=== PATIENT | male | born 1970 | race Hispanic/Latino ===

== ENCOUNTER 2022-03-12 13:48 | Emergency (ER) | payer MEDICARE, MEDICAID ==
[2022-03-12] MEDS ORDERED: ACETAMINOPHEN 325 MG TAB PO ONE (14:14)
[2022-03-12] MEDS ORDERED: FAMOTIDINE 20 MG TAB PO ONE (14:14)
[2022-03-12] MEDS ORDERED: ONDANSETRON 4 MG ODT TAB PO ONE (14:14)
[2022-03-12 15:12] LABS: Alanine Aminotransferase 17 units/L (7-56); Albumin 4.9 g/dL (3.9-5); BUN/Creatinine Ratio 23; Blood Urea Nitrogen 21 mg/dL (9-20); Calcium 9.9 mg/dL (8.4-10.2); Hemolysis Index 8
[2022-03-12 15:14] LABS: Basophils % (Auto) 0.4 % (0.0-1.8); Eosinophils % (Auto) 0.4 % (0.0-4.3); Hematocrit 51.3 % (35.5-45.6); Lymphocytes # (Auto) 1.2 K/mm3 (1.2-5.4); Mean Corpuscular HGB Conc 33 % (32-34); Mean Corpuscular Volume 94 fl (84-94); Monocytes # (Auto) 0.5 K/mm3 (0.0-0.8); Monocytes % (Auto) 7.7 % (0.0-7.3); Platelet Count 196 K/mm3 (140-440); Red Blood Count 5.44 M/mm3 (3.65-5.03); Red Cell Distribution Width 14.3 % (13.2-15.2)
--- NOTE | 2022-03-12 16:04 | Emergency Department Report ---
ED Psych HPI - General Chief Complaint: Psych Stated Complaint: SI/ABD PAIN Time Seen by Provider: 03/12/22 14:13 Source: EMS Mode of arrival: Ambulatory Limitations: No Limitations - History of Present Illness Initial Comments: 51-year-old male with a past medical history of schizophrenia and hypertension presents to the hospital complaining of suicidal ideation x1 day. 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 intake today. Patient denies any inciting factor. His plan is to overdose on pills. He complains of chronic ongoing abdominal pain with decreased appetite and bilateral knee pain. He states he has a "weak stomach" and he has been having these issues for years. He denies nausea, vomiting, fever, dysuria, or diarrhea. He denies history of abdominal surgeries - Related Data Allergies Allergy/AdvReac Type Severity Reaction Status Date / Time No Known Allergies Allergy Unverified 03/12/22 13:59 ED Review of Systems ROS: Stated complaint: SI/ABD PAIN Other details as noted in HPI Comment: All other systems reviewed and negative ED Past Medical Hx - Past Medical History Previous Medical History?: Yes Hx Hypertension: Yes Hx Psychiatric Treatment: Yes ED Physical Exam - General Limitations: No Limitations - Other Other exam information: General: No acute distress Head: Atraumatic Eyes: normal appearance ENT: Moist mucous membranes Neck: Normal appearance, no midline tenderness Chest: Clear to auscultation bilaterally CV: Regular rate and rhythm Abdomen: Soft, normal bowel sounds, mild generalized abdominal tenderness, nondistended, no rebound or guarding Back: Normal inspection Extremity: Normal inspection, full range of motion Neuro: Alert O x 3, no facial asymmetry, speech clear, no gross motor sensory deficit Psych: poor eye contact Skin: No rash ED Course Vital Signs 03/12/22 03/12/22 13:59 20:29 Temperature 97.4 F L Pulse Rate 80 87 Respiratory 18 18 Rate Blood Pressure 120/90 143/104 [Left] O2 Sat by Pulse 100 98 Oximetry ED Medical Decision Making - Lab Data Result diagrams: 03/12/22 14:31 03/12/22 14:31 Lab Results 03/12/22 03/12/22 03/12/22 Range/Units 14:31 14:31 14:31 WBC 6.7 (4.5-11.0) K/mm3 RBC 5.44 H (3.65-5.03) M/mm3 Hgb 17.0 H (11.8-15.2) gm/dl Hct 51.3 H (35.5-45.6) % MCV 94 (84-94) fl MCH 31 (28-32) pg MCHC 33 (32-34) % RDW 14.3 (13.2-15.2) % Plt Count 196 (140-440) K/mm3 Lymph % (Auto) 18.0 (13.4-35.0) % [place] % (Auto) 7.7 H (0.0-7.3) % Eos % (Auto) 0.4 (0.0-4.3) % Baso % (Auto) 0.4 (0.0-1.8) % Lymph # (Auto) 1.2 (1.2-5.4) K/mm3 [place] # (Auto) 0.5 (0.0-0.8) K/mm3 Eos # (Auto) 0.0 (0.0-0.4) K/mm3 Baso # (Auto) 0.0 (0.0-0.1) K/mm3 Seg Neutrophils % 73.5 H (40.0-70.0) % Seg Neutrophils # 4.9 (1.8-7.7) K/mm3 Sodium 137 (137-145) mmol/L Potassium 4.0 (3.6-5.0) mmol/L Chloride 99.4 (98-107) mmol/L Carbon Dioxide 25 (22-30) mmol/L Anion Gap 17 mmol/L BUN 21 H (9-20) mg/dL Creatinine 0.9 (0.8-1.3) mg/dL Estimated GFR > 60 ml/min BUN/Creatinine Ratio 23 % Glucose 84 (75-100) mg/dL Calcium 9.9 (8.4-10.2) mg/dL Total Bilirubin 0.70 (0.1-1.2) mg/dL AST 19 (5-40) units/L ALT 17 (7-56) units/L Alkaline Phosphatase 126 (35-129) units/L Total Protein 8.0 (6.3-8.2) g/dL Albumin 4.9 (3.9-5) g/dL Albumin/Globulin Ratio 1.6 % Lipase (13-60) units/L Salicylates < 0.3 L (2.8-20.0) mg/dL Acetaminophen (10.0-30.0) ug/mL Plasma/Serum Alcohol (0-0.07) % 03/12/22 03/12/22 03/12/22 Range/Units 14:31 14:31 14:31 WBC (4.5-11.0) K/mm3 RBC (3.65-5.03) M/mm3 Hgb (11.8-15.2) gm/dl Hct (35.5-45.6) % MCV (84-94) fl MCH (28-32) pg MCHC (32-34) % RDW (13.2-15.2) % Plt Count (140-440) K/mm3 Lymph % (Auto) (13.4-35.0) % [place] % (Auto) (0.0-7.3) % Eos % (Auto) (0.0-4.3) % Baso % (Auto) (0.0-1.8) % Lymph # (Auto) (1.2-5.4) K/mm3 [place] # (Auto) (0.0-0.8) K/mm3 Eos # (Auto) (0.0-0.4) K/mm3 Baso # (Auto) (0.0-0.1) K/mm3 Seg Neutrophils % (40.0-70.0) % Seg Neutrophils # (1.8-7.7) K/mm3 Sodium (137-145) mmol/L Potassium (3.6-5.0) mmol/L Chloride (98-107) mmol/L Carbon Dioxide (22-30) mmol/L Anion Gap mmol/L BUN (9-20) mg/dL Creatinine (0.8-1.3) mg/dL Estimated GFR ml/min BUN/Creatinine Ratio % Glucose (75-100) mg/dL Calcium (8.4-10.2) mg/dL Total Bilirubin (0.1-1.2) mg/dL AST (5-40) units/L ALT (7-56) units/L Alkaline Phosphatase (35-129) units/L Total Protein (6.3-8.2) g/dL Albumin (3.9-5) g/dL Albumin/Globulin Ratio % Lipase 28 (13-60) units/L Salicylates (2.8-20.0) mg/dL Acetaminophen 5.0 L (10.0-30.0) ug/mL Plasma/Serum Alcohol < 0.01 (0-0.07) % - Medical Decision Making 51-year-old male with suicidal ideation and chronic abdominal pain. Patient is a 1013 for SI with plan. Labs unremarkable. UA pending collection. Patient is otherwise medically cleared for inpatient psychiatric admission gi meds ordered Critical Care Time: No Critical care attestation.: If time is entered above; I have spent that time in minutes in the direct care of this critically ill patient, excluding procedure time. ED Disposition Clinical Impression: Suicidal ideation, Schizophrenia, Medical clearance for psychiatric admission, Chronic abdominal pain Disposition: [address] [place] [address] Is pt being admited?: No Does the pt Need Aspirin: No Condition: Stable Time of Disposition: 21:05
[2022-03-12] MEDS ORDERED: ACETAMINOPHEN 500 MG TAB PO PRN (21:02)
[2022-03-12] MEDS ORDERED: ONDANSETRON 4 MG ODT TAB PO PRN (21:04)
[2022-03-12] MEDS ORDERED: FAMOTIDINE 20 MG TAB PO SCH (22:00)
[2022-03-13 00:48] LABS: Bacteria,Urine 1+ /HPF (Negative); Bilirubin,Urine NEG (Negative); Blood,Urine SM (Negative); Color,Urine Yellow (Yellow); Mucus,Urine FEW /HPF
[2022-03-13 00:49] LABS: WBC,Urine > 182.0 /HPF (0.0-6.0)
[2022-03-13 00:55] LABS: Amphetamine Screen,Urine PRESUMPTIVE NEGATIVE; Benzodiazepines Screen,Urine PRESUMPTIVE NEGATIVE; Cannabinoid Screen,Urine PRESUMPTIVE NEGATIVE; Cocaine Screen,Urine PRESUMPTIVE NEGATIVE; Methadone Screen,Urine PRESUMPTIVE NEGATIVE; Opiate Screen,Urine PRESUMPTIVE NEGATIVE
[2022-03-13 07:16] VITALS: BP 124/79
--- NOTE | 2022-03-13 10:17 | Consultation ---
History of Present Illness - Reason for Consult Consult date: 03/13/22 Reason for consult: SI, depression - History of Present Psychiatric Illness HPI: 51-year-old male with a past medical history of schizophrenia and hypertension presents to the hospital complaining of suicidal ideation x1 day. 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 intake today. Patient denies any inciting factor. His plan is to overdose on p ills. He complains of chronic ongoing abdominal pain with decreased appetite and bilateral knee pain. He states he has a "weak stomach" and he has been having these issues for years. He denies nausea, vomiting, fever, dysuria, or diarrhea. He denies history of abdominal surgeries. The patient was seen today. He looks depressed. His affect is flat. The patient says he came in for feeling weak and stomach ache. He verbalizes feeling very depressed. The patient endorses SI with a plan to OD. He says he has a history of schizophrenia. The patient says he's been taking his medications. He could not recall the medications he's on. PAST PSYCHIATRIC HISTORY Diagnoses: Schizophrenia Suicide attempts or Self-harm behavior: Yes Prior psychiatric hospitalizations: Yes Substance Abuse history: Denies Previous psychiatric medications tried: could not recall Outpatient treatment: yes PAST MEDICAL HISTORY: None reported Family Psychiatric History: None reported or documented SOCIAL HISTORY Marital Status: Single Living Arrangements: disabled Employment Status: Disabled Access to guns/weapons: Denies Education: History of Abuse: Denies Legal History: Denies REVIEW OF SYSTEMS Constitutional: Negative for weight loss ENT: Negative for stridor Respiratory: Negative for cough or hemoptysis All other systems reviewed and are negative MENTAL STATUS EXAMINATION General Appearance and Behavior: Age appropriate, good hygiene, wearing appro priate clothes, eye contact, calm, cooperative and polite Cooperation: Cooperative Psychomotor Behavior: Psychomotor normal Mood: Depressed Affect and affective range: flat, congruent with stated mood Thought Process: SI Thought Content: None Speech: normal tone and pace Suicidal Ideation: Yes Homicidal Ideation: Denies Hallucinations: Denies Delusions: None elicited Impulse Control: Limited Insight and Judgment: Limited insight and judgment Memory: Limited Attention: attentive Orientation: Alert, oriented Assessment and Plan (1) Major depressive disorder Treatment Plan 1013 Abilify 5mg po daily Remeron 15mg po qhs Prozac 20mg po daily Medical: Per primary Sitter: Defer to primary Disposition: Recommend acute psychiatric inpatient treatment Will follow. Thanks Case staffed with Dr. Omer Medications and Allergies Allergies Allergy/AdvReac Type Severity Reaction Status Date / Time No Known Allergies Allergy Verified 03/12/22 21:06 Active Meds: Active Medications Acetaminophen (Acetaminophen 500 Mg Tab) 500 mg PO Q4HR PRN PRN Reason: Pain , Severe (7-10) Famotidine (Famotidine 20 Mg Tab) 20 mg PO BID ANIYAH Last Admin: 03/12/22 22:00 Dose: 20 mg Ondansetron HCl (Ondansetron 4 Mg Odt Tab) 4 mg PO Q8HR PRN PRN Reason: Nausea And Vomiting Mental Status Exam - Vital signs Last Vital Signs Temp 98.6 F 03/13/22 07:15 Pulse 68 03/13/22 07:15 Resp 16 03/13/22 07:15 BP 124/79 03/13/22 07:15 Pulse Ox 100 03/13/22 07:15 Results Result Diagrams: 03/12/22 14:31 03/12/22 14:31 Abnormal lab results 03/12/22 03/12/22 03/12/22 Range/Units 14:31 14:31 14:31 RBC 5.44 H (3.65-5.03) M/mm3 Hgb 17.0 H (11.8-15.2) gm/dl Hct 51.3 H (35.5-45.6) % [place] % (Auto) 7.7 H (0.0-7.3) % Seg Neutrophils % 73.5 H (40.0-70.0) % BUN 21 H (9-20) mg/dL Urine WBC (Auto) (0.0-6.0) /HPF Salicylates < 0.3 L (2.8-20.0) mg/dL Acetaminophen (10.0-30.0) ug/mL 03/12/22 03/12/22 Range/Units 14:31 Unknown RBC (3.65-5.03) M/mm3 Hgb (11.8-15.2) gm/dl Hct (35.5-45.6) % [place] % (Auto) (0.0-7.3) % Seg Neutrophils % (40.0-70.0) % BUN (9-20) mg/dL Urine WBC (Auto) > 182.0 H (0.0-6.0) /HPF Salicylates (2.8-20.0) mg/dL Acetaminophen 5.0 L (10.0-30.0) ug/mL All other labs normal.
[2022-03-13] MEDS ORDERED: FLUoxetine 20 MG CAP PO SCH (11:00)
[2022-03-13] MEDS ORDERED: ARIPiprazole 5 MG TAB PO SCH (11:00)
[2022-03-13] MEDS ORDERED: SERTRALINE 25 MG TAB PO SCH (11:00)
[2022-03-13] MEDS ORDERED: NITROFURANTOIN MONOHYD/M-CRYST 100 MG CAP PO ONE (11:33)
--- NOTE | 2022-03-13 11:35 | Emergency Department Report ---
Blank Doc - Documentation Documentation: 51-year-old male with schizophrenia on a 1013 for suicidal ideation with plan to overdose on pills. Chart and vital signs reviewed. UA is now available and indicates UTI. Macrobid started. P.o. psychiatric meds ordered by mental health requirements engineer. Placement pending
[2022-03-13] MEDS ORDERED: MIRTAZAPINE 15 MG TAB PO SCH (22:00)
[2022-03-13] MEDS ORDERED: NITROFURANTOIN MONOHYD/M-CRYST 100 MG CAP PO SCH (22:00)
== END 2022-03-13 16:00 ==
LOC: ED 13:48
DX: R45.851 Suicidal ideations (principal); F20.9 Schizophrenia, unspecified; Z13.30 Encounter for screening examination for mental health and behavioral disorders, unspecified; R10.9 Unspecified abdominal pain; I10 Essential (primary) hypertension; Z20.822 Contact with and (suspected) exposure to COVID-19
CPT/HCPCS: 36415; 80053; 80307; 81001; 83690; 85025; 99284; U0003; 80320; G0480